=== PATIENT | female | born 1940 | race Caucasian/White ===

== ENCOUNTER 2024-12-12 18:08 | Inpatient (IN) | payer MEDICARE, OTHER ==
[2024-12-12] MEDS ORDERED: Sodium Chloride 0.9% 10 ML Syringe FLUSH PRN (18:15)
[2024-12-12 18:37] LABS: BASOPHILS ABSOLUTE AUTO 0.1 K/mm3 (0.0-0.2); BASOPHILS PERCENT AUTO 0.5 % (0.0-1.0); EOSINOPHILS ABSOLUTE AUTO 0.1 K/mm3 (0.0-0.4); EOSINOPHILS PERCENT AUTO 0.8 % (0.0-6.0); HEMATOCRIT 29.6 % (37.0-47.0); HEMOGLOBIN 9.5 gm/dl (12.0-16.0); IMMATURE GRAN ABSOLUTE AUTO 0.69 K/mm3 (0.00-0.05); IMMATURE GRAN PERCENT AUTO 5.4 % (0.0-0.4); LYMPHOCYTES ABSOLUTE AUTO 3.5 K/mm3 (1.0-4.8); MEAN CORPUSCULAR HEMOGLOBIN 32.5 pg (28.0-32.0); MEAN CORPUSCULAR HGB CONC 32.1 g/dl (32.0-36.0); MEAN CORPUSCULAR VOLUME 101.4 fl (83.0-99.0); MEAN PLATELET VOLUME 12.3 fl (9.4-12.3); MONOCYTES ABSOLUTE AUTO 0.8 K/mm3 (0.0-0.8); NEUTROPHILS ABSOLUTE AUTO 7.7 K/mm3 (1.8-7.7); NEUTROPHILS PERCENT AUTO 60.3 % (41.0-71.0); NRBC ABSOLUTE 0.53 (0.00-0.02); NRBC PERCENT 4.1 % (0.0-0.2); PLATELET COUNT,PLT 94 K/mm3 (150-400); RED BLOOD CELL COUNT 2.92 M/mm3 (4.10-5.30); WHITE BLOOD CELL COUNT,WBC 12.79 K/mm3 (3.9-11.3)
[2024-12-12 18:44] LABS: INR 1.06; PROTHROMBIN TIME 11.2 SECONDS (9.7-12.0)
[2024-12-12 18:45] LABS: PTT,PARTIAL THROMBOPLSTIN TIME 26.7 SECONDS (21.7-31.4)
[2024-12-12 18:47] LABS: A/G RATIO 0.6 (1-2); ALANINE AMINOTRANSFERASE,ALT 227 U/L (14-59); ALBUMIN 2.8 g/dl (3.4-5.0); ALKALINE PHOSPHATASE 214 U/L (46-116); ANION GAP 18.5 (5-15); ASPARTATE AMNIOTRANSFERASE,AST 293 U/L (15-37); BILIRUBIN TOTAL 1.2 mg/dL (0.2-1.0); BLOOD UREA NITROGEN,BUN 49 mg/dL (7-18); BUN/CREATININE RATIO 40.8 (14-18); CARBON DIOXIDE,CO2 22 mEq/L (21-32); CHLORIDE,CL 100 mEq/L (98-107); CREATININE 1.2 mg/dL (0.55-1.02); ESTIMATED GFR 45 mL/min (>60); GLUCOSE RANDOM 98 mg/dL (70-99); MAGNESIUM 1.9 mg/dL (1.8-2.4); POTASSIUM,K 4.5 mEq/L (3.5-5.1); PROTEIN TOTAL,TP 7.6 g/dl (6.4-8.2); SODIUM,NA 136 mEq/L (136-145); TROPONIN I HIGH SENSITIVITY 21 pg/mL (<=51)
[2024-12-12] MEDS: Iopamidol 755 Mg/ML 100 ML Bottle IVPUSH ONE (19:06)
[2024-12-12] MEDS: Sodium Chloride 0.9% 100 ML IV SCH (19:06)
[2024-12-12] MEDS: predniSONE 20 MG Tab PO ONE (20:27)
[2024-12-12] MEDS: Aspirin 81 MG Tab.Chew PO ONE (20:28)
[2024-12-12] MEDS: Acyclovir 200 MG Cap PO ONE (21:29)
[2024-12-12] MEDS: Sodium Chloride 0.9% 500 ML IV ONE (22:15)
[2024-12-13] MEDS: LORazepam 2 MG/ML SDV IVPUSH PRN (06:25)
[2024-12-13] MEDS: Gadobenate Dimeglumine 529 MG/ML 15 ML SDV IVPUSH ONE (07:03)
[2024-12-13] MEDS: Sodium Chloride 0.9% 10 ML Syringe FLUSH SCH (07:04)
[2024-12-13 08:17] LABS: A/G RATIO 0.5 (1-2); ALBUMIN 2.2 g/dl (3.4-5.0); ANION GAP 20.5 (5-15); BILIRUBIN TOTAL 0.9 mg/dL (0.2-1.0); BUN/CREATININE RATIO 44.5 (14-18); CALCIUM 10.4 mg/dL (8.5-10.1); CREATININE 1.1 mg/dL (0.55-1.02); EST CRCL DRUG DOSING (CG) 27.83 mL/min; POTASSIUM,K 4.5 mEq/L (3.5-5.1); PROTEIN TOTAL,TP 6.5 g/dl (6.4-8.2)
[2024-12-13] MEDS: Mineral Oil/Petrolatum Ophth Oint 3.5 GM Tube EYELF SCH (08:35)
[2024-12-13] MEDS ORDERED: Ondansetron 4 MG/2 ML SDV IV PRN (09:06)
[2024-12-13] MEDS ORDERED: Docusate Sodium 100 MG Cap PO PRN (09:06)
[2024-12-13] MEDS ORDERED: Morphine 2 MG/ML SYRINGE IVPUSH PRN (09:06)
[2024-12-13] MEDS ORDERED: Acetaminophen 325 MG Tab PO PRN (09:06)
[2024-12-13] MEDS ORDERED: oxyCODONE 5 MG Tab PO PRN (09:06)
[2024-12-13] MEDS ORDERED: Polyethylene Glycol 3350 Powder 17 GM Packet PO PRN (09:06)
[2024-12-13] MEDS ORDERED: Enoxaparin 30 MG/0.3 ML Syringe SUBCUT SCH (09:15)
[2024-12-13] MEDS ORDERED: Sodium Chloride 0.9% 1,000 ML IV SCH (10:15)
[2024-12-13] MEDS: Pantoprazole 40 MG Tab.CR PO SCH ×2 (10:46→16:25)
[2024-12-13] MEDS: valACYclovir 500 MG Tab PO SCH (10:46)
[2024-12-13] MEDS: predniSONE 20 MG Tab PO ONE (10:47)
[2024-12-13 10:56] LABS: TSH 4.791 uIU/mL (0.358-3.74)
[2024-12-13] MEDS: Zoledronic Acid 4 MG in Sodium Chloride 0.9% 100 ML IV ONE (11:24)
[2024-12-13 11:28] LABS: T4 FREE 1.32 ng/dL (0.76-1.46)
[2024-12-13 16:45] LABS: APPEARANCE,URINE CLEAR (Clear); BILIRUBIN,URINE NEGATIVE (Negative); COLOR,URINE YELLOW (Yellow); GLUCOSE,URINE NEGATIVE (Negative); KETONES,URINE TRACE (Negative); LEUKOCYTE ESTERASE,URINE NEGATIVE (Negative); NITRITE,URINE NEGATIVE (Negative); OCCULT BLOOD,URINE NEGATIVE (Negative); PH,URINE 5.5 (5.0-8.0); PROTEIN,URINE TRACE (Negative); UROBILINOGEN,URINE 0.2 (0.2-1.0)
[2024-12-13 16:54] LABS: BACTERIA,URINE FEW /hpf (FEW); EPITHELIAL CELLS,URINE 0-5 /hpf (0-5); RBC,URINE 0-5 /hpf (0-5); WBC,URINE 0-5 /hpf (0-5)
[2024-12-13 16:55] LABS: FINE GRANULAR CASTS,URINE 0-5 /lpf (0-5); MUCUS,URINE FEW /hpf (FEW)
[2024-12-14 04:30] LABS: BASOPHILS ABSOLUTE AUTO 0.1 K/mm3 (0.0-0.2); BASOPHILS PERCENT AUTO 0.3 % (0.0-1.0); EOSINOPHILS PERCENT AUTO 0.1 % (0.0-6.0); HEMATOCRIT 26.1 % (37.0-47.0); HEMOGLOBIN 8.2 gm/dl (12.0-16.0); IMMATURE GRAN ABSOLUTE AUTO 0.88 K/mm3 (0.00-0.05); LYMPHOCYTES PERCENT AUTO 20.7 % (24.0-44.0); MEAN CORPUSCULAR HEMOGLOBIN 31.3 pg (28.0-32.0); MEAN CORPUSCULAR HGB CONC 31.4 g/dl (32.0-36.0); MEAN CORPUSCULAR VOLUME 99.6 fl (83.0-99.0); MEAN PLATELET VOLUME 11.4 fl (9.4-12.3); NEUTROPHILS ABSOLUTE AUTO 9.7 K/mm3 (1.8-7.7); NEUTROPHILS PERCENT AUTO 65.9 % (41.0-71.0); NRBC ABSOLUTE 0.46 (0.00-0.02); NRBC PERCENT 3.1 % (0.0-0.2); PLATELET COUNT,PLT 81 K/mm3 (150-400); RED BLOOD CELL COUNT 2.62 M/mm3 (4.10-5.30); WHITE BLOOD CELL COUNT,WBC 14.66 K/mm3 (3.9-11.3)
[2024-12-14 04:51] LABS: A/G RATIO 0.6 (1-2); ALBUMIN 2.4 g/dl (3.4-5.0); ANION GAP 18.2 (5-15); BILIRUBIN TOTAL 0.8 mg/dL (0.2-1.0); BUN/CREATININE RATIO 38.2 (14-18); CALCIUM 9.9 mg/dL (8.5-10.1); CREATININE 1.7 mg/dL (0.55-1.02); EST CRCL DRUG DOSING (CG) 18.01 mL/min; POTASSIUM,K 4.2 mEq/L (3.5-5.1); PROTEIN TOTAL,TP 6.5 g/dl (6.4-8.2)
[2024-12-14] MEDS: predniSONE 20 MG Tab PO SCH (06:06)
[2024-12-14 06:07] LABS: SLIDE REVIEW ABNORMAL SMEAR
[2024-12-15 04:24] LABS: A/G RATIO 0.6 (1-2); ALBUMIN 2.5 g/dl (3.4-5.0); ANION GAP 19.2 (5-15); BILIRUBIN TOTAL 0.7 mg/dL (0.2-1.0); BUN/CREATININE RATIO 49.3 (14-18); CALCIUM 9.6 mg/dL (8.5-10.1); CREATININE 1.4 mg/dL (0.55-1.02); EST CRCL DRUG DOSING (CG) 21.87 mL/min; POTASSIUM,K 4.2 mEq/L (3.5-5.1); PROTEIN TOTAL,TP 6.4 g/dl (6.4-8.2)
== END 2024-12-15 12:26 | disposition home health service (06) | DRG 74 ==
LOC: JD.ED 18:08 → JD.MS 21:19
PROVIDERS: ADMIT Internal Medicine; ATTEND Internal Medicine
DX: R29.810 Facial weakness (principal); G51.0 Bell's palsy; C79.9 Secondary malignant neoplasm of unspecified site; D64.9 Anemia, unspecified; I50.32 Chronic diastolic (congestive) heart failure; E46 Unspecified protein-calorie malnutrition; C79.51 Secondary malignant neoplasm of bone; C78.7 Secondary malignant neoplasm of liver and intrahepatic bile duct; C78.5 Secondary malignant neoplasm of large intestine and rectum; E83.52 Hypercalcemia; Z51.5 Encounter for palliative care; Z66 Do not resuscitate; I11.0 Hypertensive heart disease with heart failure; J45.909 Unspecified asthma, uncomplicated; M54.9 Dorsalgia, unspecified; G89.29 Other chronic pain; E03.9 Hypothyroidism, unspecified; H91.90 Unspecified hearing loss, unspecified ear; H54.7 Unspecified visual loss; R53.83 Other fatigue; I35.0 Nonrheumatic aortic (valve) stenosis; I34.81 Nonrheumatic mitral (valve) annulus calcification; D63.0 Anemia in neoplastic disease; C50.911 Malignant neoplasm of unspecified site of right female breast; F32.A Depression, unspecified; K44.9 Diaphragmatic hernia without obstruction or gangrene; G31.9 Degenerative disease of nervous system, unspecified; D69.6 Thrombocytopenia, unspecified; N28.1 Cyst of kidney, acquired; R74.01 Elevation of levels of liver transaminase levels; E03.8 Other specified hypothyroidism; Z85.3 Personal history of malignant neoplasm of breast; Z88.0 Allergy status to penicillin; Z87.11 Personal history of peptic ulcer disease; Z87.891 Personal history of nicotine dependence; Z68.26 Body mass index [BMI] 26.0-26.9, adult
CPT/HCPCS: 36415; 70450; 70496; 70498; 80053; 82947; 83735; 84484; 85025; 85610; 85730; 93005; 94762; 99285; A9270; J7512; Q9967; 70553; 70553-26; 81001; 84439; 84443; 85027; 93010; 97112-GP; 97116-GP; 97161-GP; 97166-GO; 97530-GP; 97535-GO; 99223; 99233; 99239; A9577; J2060; J3489; J7030

== ENCOUNTER 2024-12-20 01:23 | Emergency (ER) | payer MEDICARE, OTHER ==
[2024-12-20] MEDS: Acetaminophen/HYDROcodone 325-5 MG Tab PO ONE (01:57)
== END 2024-12-20 02:00 | disposition home or self-care (01) ==
LOC: JD.ED 01:23
DX: K08.89 Other specified disorders of teeth and supporting structures (principal); I11.0 Hypertensive heart disease with heart failure; I50.9 Heart failure, unspecified; I48.91 Unspecified atrial fibrillation; E03.9 Hypothyroidism, unspecified; Z88.0 Allergy status to penicillin; Z91.013 Allergy to seafood; Z79.899 Other long term (current) drug therapy
CPT/HCPCS: 99284; A9270